=== PATIENT | female | born 1935 | race Caucasian/White ===

== ENCOUNTER 2023-05-11 20:37 | Inpatient (IN) | payer MEDICARE ==
[~2023-05-11] VITALS: Ht 157.5 cm; Wt 87.3 kg
[2023-05-11 21:50] LABS: CARBON DIOXIDE 28 mmol/L (21-32); CHLORIDE 102 mmol/L (98-107); CREATININE 2.6 mg/dL (0.6-1.3); GLUCOSE 169 mg/dL (74-106); SODIUM SERUM 137 mmol/L (136-145); UREA NITROGEN, BLOOD 42 mg/dL (7-18)
[2023-05-11 22:04] LABS: ALANINE AMINOTRANSFERASE 22 U/L (12-78); ALBUMIN 2.7 g/dL (3.4-5.0); ALKALINE PHOSPHATASE 46 U/L (46-116); ASPARTATE AMINOTRANSFERASE 26 U/L (15-37); BILIRUBIN,DIRECT 0.1 mg/dL (0.0-0.2); BILIRUBIN,TOTAL 0.4 mg/dL (0.2-1.0); NT-PRO BNP 719 pg/mL (0-125); TOTAL PROTEIN, SERUM 6.9 g/dL (6.4-8.2)
[2023-05-11 22:30] LABS: BASOPHILS % (AUTO) 0.1 % (0.0-2.0); EOSINOPHILS # (AUTO) 0.1 K/uL (0.0-0.7); EOSINOPHILS % (AUTO) 0.6 % (0.0-6.0); HEMATOCRIT 36 % (33-45); HEMOGLOBIN 11.7 g/dL (11.5-14.8); LYMPHOCYTES # (AUTO) 1.3 K/uL (0.8-4.8); LYMPHOCYTES % (AUTO) 5.7 % (20.0-44.0); MEAN CORPUSCULAR HEMOGLOBIN 28 PG (26.0-33.0); MEAN CORPUSCULAR HGB CONC 32 g/dl (31.0-36.0); MEAN CORPUSCULAR VOLUME 87 fL (82-100); MONOCYTES # (AUTO) 2.2 K/uL (0.1-1.30); MONOCYTES % (AUTO) 9.2 % (2.0-12.0); NEUTROPHILS # (AUTO) 20.1 K/uL (1.8-8.9); NEUTROPHILS % (AUTO) 84.4 % (43.0-81.0); PLATELET COUNT (AUTO) 343 K/uL (150-450); RED BLOOD CELL COUNT(AUTO) 4.17 MIL/uL (4.0-5.2); RED CELL DISTRIBUTION WIDTH 15.5 % (11.5-15.0); WHITE BLOOD COUNT (AUTO) 23.8 K/uL (4.3-11.0)
[2023-05-11] MEDS ORDERED: ENOXAPARIN SODIUM 40 MG/0.4 ML DISP.SYRIN SQ SCH (23:00)
[2023-05-11] MEDS ORDERED: ACETAMINOPHEN 325 MG TABLET PO PRN (23:00)
[2023-05-12] MEDS: LEVOFLOXACIN 750 MG /D5W 150ML 150 ML IV ONE (00:01)
[2023-05-12 00:34] LABS: ADD URINE CULTURE NO; APPEARANCE,URINE CLEAR (CLEAR); BACTERIA,URINE Rare /HPF (None Seen); BILIRUBIN,URINE 1+ (NEGATIVE); BLOOD, URINE NEGATIVE Ery/uL (NEGATIVE); COLOR,URINE YELLOW (YELLOW); KETONES,URINE 1+ mg/dL (NEGATIVE); LEUKOCYTE ESTERASE ,URINE NEGATIVE (NEGATIVE); NITRITE, URINE NEGATIVE (NEGATIVE); PROTEIN,URINE TRACE mg/dl (NEGATIVE); SQUAMOUS EPITHELIAL CELL,UR Rare /HPF (None Seen); UGLUCOSE NEGATIVE (NEGATIVE); UROBILINOGEN,URINE 0.2 EU/dL (0.2); WBC,URINE 0-2 /HPF (0-3)
[2023-05-12] MEDS: IV NS 0.9% 1,000 ML IV PRN (02:04)
[2023-05-12 02:27] VITALS: BP 103/53; TEMP 98.8; O2SAT 96
[2023-05-12 04:00] VITALS: BP 102/50; TEMP 98; O2SAT 96
[2023-05-12] MEDS: FUROSEMIDE 40 MG/4 ML VIAL IV ONE (06:14)
[2023-05-12 07:13] LABS: BASOPHILS % (AUTO) 0.2 % (0.0-2.0); EOSINOPHILS # (AUTO) 0.4 K/uL (0.0-0.7); HEMATOCRIT 33 % (33-45); HEMOGLOBIN 10.6 g/dL (11.5-14.8); LYMPHOCYTES % (AUTO) 16.8 % (20.0-44.0); MEAN CORPUSCULAR HEMOGLOBIN 28 PG (26.0-33.0); MEAN CORPUSCULAR HGB CONC 32 g/dl (31.0-36.0); MEAN CORPUSCULAR VOLUME 88 fL (82-100); MONOCYTES # (AUTO) 1.7 K/uL (0.1-1.30); MONOCYTES % (AUTO) 9.5 % (2.0-12.0); NEUTROPHILS # (AUTO) 12.9 K/uL (1.8-8.9); NEUTROPHILS % (AUTO) 71.5 % (43.0-81.0); PLATELET COUNT (AUTO) 272 K/uL (150-450); RED BLOOD CELL COUNT(AUTO) 3.76 MIL/uL (4.0-5.2); RED CELL DISTRIBUTION WIDTH 15.5 % (11.5-15.0)
[2023-05-12 07:44] LABS: CHOLESTEROL 150 mg/dL (<200); HDL CHOLESTEROL 63 mg/dL (40-60); LDL 66 mg/dL (0-99); TRIGLYCERIDES 92 mg/dL (30-150)
[2023-05-12] MEDS ORDERED: GABA300C PO (07:49)
[2023-05-12] MEDS ORDERED: LISI1TAB55 PO (07:49)
[2023-05-12] MEDS ORDERED: MONT10TA22 PO (07:49)
[2023-05-12] MEDS ORDERED: FLUT1BLS6 IH (07:49)
[2023-05-12] MEDS ORDERED: FENO145T21 PO (07:49)
[2023-05-12 07:57] LABS: CALCIUM, SERUM 8.6 mg/dL (8.5-10.1); CARBON DIOXIDE 25 mmol/L (21-32); CHLORIDE 105 mmol/L (98-107); CREATININE 2.5 mg/dL (0.6-1.3); GLUCOSE 103 mg/dL (74-106); PHOSPHORUS 4.1 mg/dL (2.5-4.9); POTASSIUM 4.2 mmol/L (3.5-5.1); SODIUM SERUM 137 mmol/L (136-145); UREA NITROGEN, BLOOD 44 mg/dL (7-18)
[2023-05-12 08:00] VITALS: BP 90/47; TEMP 97.3
[2023-05-12 10:47] LABS: THYROID STIMULATING HORMONE 0.954 uIU/mL (0.358-3.74)
[2023-05-12] MEDS: ENOXAPARIN SODIUM 30 MG/0.3 ML DISP.SYRIN SQ SCH (10:53)
[2023-05-12 11:28] LABS: APPEARANCE,URINE CLEAR (CLEAR); BILIRUBIN,URINE NEGATIVE (NEGATIVE); BLOOD, URINE NEGATIVE Ery/uL (NEGATIVE); COLOR,URINE YELLOW (YELLOW); KETONES,URINE NEGATIVE (NEGATIVE); LEUKOCYTE ESTERASE ,URINE 2+ (NEGATIVE); NITRITE, URINE POSITIVE (NEGATIVE); PH,URINE 5.5 (5.0-8.0); PROTEIN,URINE NEGATIVE (NEGATIVE); UGLUCOSE NEGATIVE (NEGATIVE); UROBILINOGEN,URINE 0.2 EU/dL (0.2)
[2023-05-12 11:32] LABS: ADD URINE CULTURE YES; BACTERIA,URINE Few /HPF (None Seen); RBC,URINE 0-2 /HPF (0-2); SQUAMOUS EPITHELIAL CELL,UR Rare /HPF (None Seen)
[2023-05-12 11:43] LABS: CREATININE, URINE 47.6 MG/DL (30.0-125.0); URINE TOTAL PROTEIN 7.9 mg/dL (0-11.9)
[2023-05-12 11:47] LABS: EOSINOPHIL,URINE None Seen
[2023-05-12 12:00] VITALS: BP 120/58; TEMP 97.3
[2023-05-12 16:00] VITALS: BP 116/50; TEMP 98; O2SAT 94
[2023-05-12 20:00] VITALS: BP 134/57; TEMP 98.9; O2SAT 95
[2023-05-12] MEDS: AMOXICILLIN TRIHYDRATE 250 MG CAPSULE PO SCH (22:24)
[2023-05-13] VITALS: BP 135/54; TEMP 98.9; O2SAT 95
[2023-05-13 04:00] VITALS: BP 130/63; TEMP 98.9; O2SAT 95
[2023-05-13 06:40] LABS: BASOPHILS % (AUTO) 0.1 % (0.0-2.0); EOSINOPHILS # (AUTO) 0.2 K/uL (0.0-0.7); EOSINOPHILS % (AUTO) 1.3 % (0.0-6.0); HEMATOCRIT 34 % (33-45); HEMOGLOBIN 10.9 g/dL (11.5-14.8); LYMPHOCYTES # (AUTO) 1.8 K/uL (0.8-4.8); LYMPHOCYTES % (AUTO) 11.7 % (20.0-44.0); MEAN CORPUSCULAR HEMOGLOBIN 28 PG (26.0-33.0); MEAN CORPUSCULAR HGB CONC 32 g/dl (31.0-36.0); MEAN CORPUSCULAR VOLUME 88 fL (82-100); MONOCYTES # (AUTO) 1.7 K/uL (0.1-1.30); MONOCYTES % (AUTO) 10.6 % (2.0-12.0); NEUTROPHILS % (AUTO) 76.3 % (43.0-81.0); PLATELET COUNT (AUTO) 302 K/uL (150-450); RED BLOOD CELL COUNT(AUTO) 3.87 MIL/uL (4.0-5.2); RED CELL DISTRIBUTION WIDTH 15.5 % (11.5-15.0); WHITE BLOOD COUNT (AUTO) 15.7 K/uL (4.3-11.0)
[2023-05-13 07:03] LABS: CREATINE KINASE, TOTAL 632 U/L (26-192)
[2023-05-13 07:17] LABS: ALANINE AMINOTRANSFERASE 20 U/L (12-78); ALBUMIN 2.1 g/dL (3.4-5.0); ALKALINE PHOSPHATASE 40 U/L (46-116); ASPARTATE AMINOTRANSFERASE 33 U/L (15-37); BILIRUBIN,TOTAL 0.4 mg/dL (0.2-1.0); CALCIUM, SERUM 8.7 mg/dL (8.5-10.1); CARBON DIOXIDE 26 mmol/L (21-32); CHLORIDE 105 mmol/L (98-107); CREATININE 1.7 mg/dL (0.6-1.3); GLUCOSE 142 mg/dL (74-106); MAGNESIUM 1.9 mg/dL (1.8-2.4); PHOSPHORUS 3.3 mg/dL (2.5-4.9); POTASSIUM 3.9 mmol/L (3.5-5.1); SODIUM SERUM 138 mmol/L (136-145); TOTAL PROTEIN, SERUM 6.1 g/dL (6.4-8.2); UREA NITROGEN, BLOOD 41 mg/dL (7-18)
[2023-05-13 08:00] VITALS: BP 140/65; TEMP 98; O2SAT 94
[2023-05-13] MEDS: ASPIRIN 81 MG TAB.CHEW PO SCH (09:25)
[2023-05-13 12:00] VITALS: BP 118/63; TEMP 97.8
[2023-05-13 14:07] LABS: *SPE ALBUMIN 3.2 g/dL (2.9-4.4); *SPE ALPHA-1-GLOBULIN 0.4 g/dL (0.0-0.4); *SPE ALPHA-2-GLOBULIN 0.9 g/dL (0.4-1.0); *SPE BETA GLOBULIN 1.2 g/dL (0.7-1.3); *SPE GLOBULIN, TOTAL 3.2 g/dL (2.2-3.9); *SPE M-SPIKE Not Observed g/dL (Not Observed); *SPE PROTEIN TOTAL 6.4 g/dL (6.0-8.5); *SPEGAMMA GLOBULIN 0.8 g/dL (0.4-1.8)
[2023-05-13] MEDS: SOD FERRIC GLUC 125 MG in IV NS 0.9% 100 ML IV SCH (14:07)
[2023-05-13 16:00] VITALS: BP 106/91; TEMP 98.2; O2SAT 96
[2023-05-13 20:00] VITALS: BP 141/63; TEMP 99.5; O2SAT 98
[2023-05-14] VITALS: BP 137/71; TEMP 99; O2SAT 94
[2023-05-14 04:00] VITALS: BP 137/46; TEMP 97.9; O2SAT 92
[2023-05-14 06:53] LABS: BASOPHILS % (AUTO) 0.1 % (0.0-2.0); EOSINOPHILS # (AUTO) 0.1 K/uL (0.0-0.7); HEMATOCRIT 34 % (33-45); HEMOGLOBIN 10.9 g/dL (11.5-14.8); LYMPHOCYTES # (AUTO) 1.6 K/uL (0.8-4.8); LYMPHOCYTES % (AUTO) 12.2 % (20.0-44.0); MEAN CORPUSCULAR HEMOGLOBIN 28 PG (26.0-33.0); MEAN CORPUSCULAR HGB CONC 32 g/dl (31.0-36.0); MEAN CORPUSCULAR VOLUME 88 fL (82-100); MONOCYTES # (AUTO) 1.8 K/uL (0.1-1.30); MONOCYTES % (AUTO) 13.8 % (2.0-12.0); NEUTROPHILS # (AUTO) 9.3 K/uL (1.8-8.9); NEUTROPHILS % (AUTO) 72.9 % (43.0-81.0); PLATELET COUNT (AUTO) 310 K/uL (150-450); RED BLOOD CELL COUNT(AUTO) 3.85 MIL/uL (4.0-5.2); RED CELL DISTRIBUTION WIDTH 15.1 % (11.5-15.0); WHITE BLOOD COUNT (AUTO) 12.8 K/uL (4.3-11.0)
[2023-05-14 07:17] LABS: ALANINE AMINOTRANSFERASE 20 U/L (12-78); ALBUMIN 1.9 g/dL (3.4-5.0); ALKALINE PHOSPHATASE 39 U/L (46-116); ASPARTATE AMINOTRANSFERASE 27 U/L (15-37); BILIRUBIN,TOTAL 0.5 mg/dL (0.2-1.0); CALCIUM, SERUM 8.8 mg/dL (8.5-10.1); CARBON DIOXIDE 26 mmol/L (21-32); CHLORIDE 105 mmol/L (98-107); CREATININE 1.4 mg/dL (0.6-1.3); GLUCOSE 132 mg/dL (74-106); MAGNESIUM 1.8 mg/dL (1.8-2.4); PHOSPHORUS 2.7 mg/dL (2.5-4.9); POTASSIUM 3.6 mmol/L (3.5-5.1); SODIUM SERUM 141 mmol/L (136-145); TOTAL PROTEIN, SERUM 6.1 g/dL (6.4-8.2); UREA NITROGEN, BLOOD 29 mg/dL (7-18)
[2023-05-14 08:00] VITALS: BP 107/53; TEMP 98.1; O2SAT 100
[2023-05-14 08:11] LABS: PTH, INTACT 36 pg/mL (15-65)
[2023-05-14 12:00] VITALS: BP 107/53; TEMP 98.1; O2SAT 100
[2023-05-14 16:00] VITALS: BP 140/71; TEMP 97.9; O2SAT 95
[2023-05-14] MEDS: LIDOCAINE 1% INJ 50 ML MDV IJ ONE (16:11)
[2023-05-14] MEDS: TRIAMCINOLONE ACETONIDE SUSP 40 MG/ML VIAL IM ONE (16:11)
[2023-05-14] MEDS: BUPIVACAINE 0.25% 75 MG/30 ML VIAL IJ ONE (16:11)
[2023-05-14] MEDS: GABAPENTIN 300 MG CAPSULE PO SCH (16:20)
[2023-05-14 20:00] VITALS: BP 161/69; TEMP 98; O2SAT 99
[2023-05-14] MEDS: MONTELUKAST SODIUM (10MG) 10 MG TABLET PO SCH (21:20)
[2023-05-15 04:00] VITALS: BP 120/56; TEMP 97.9; O2SAT 100
[2023-05-15 08:00] VITALS: BP 122/69; TEMP 98.4; O2SAT 95
[2023-05-15 10:41] LABS: BASOPHILS % (AUTO) 0.2 % (0.0-2.0); EOSINOPHILS % (AUTO) 0.1 % (0.0-6.0); HEMATOCRIT 34 % (33-45); HEMOGLOBIN 10.8 g/dL (11.5-14.8); LYMPHOCYTES # (AUTO) 1.5 K/uL (0.8-4.8); LYMPHOCYTES % (AUTO) 11.9 % (20.0-44.0); MEAN CORPUSCULAR HEMOGLOBIN 28 PG (26.0-33.0); MEAN CORPUSCULAR HGB CONC 32 g/dl (31.0-36.0); MEAN CORPUSCULAR VOLUME 87 fL (82-100); MONOCYTES # (AUTO) 1.1 K/uL (0.1-1.30); MONOCYTES % (AUTO) 8.6 % (2.0-12.0); NEUTROPHILS # (AUTO) 10.1 K/uL (1.8-8.9); NEUTROPHILS % (AUTO) 79.2 % (43.0-81.0); PLATELET COUNT (AUTO) 353 K/uL (150-450); RED BLOOD CELL COUNT(AUTO) 3.85 MIL/uL (4.0-5.2); RED CELL DISTRIBUTION WIDTH 14.9 % (11.5-15.0); WHITE BLOOD COUNT (AUTO) 12.7 K/uL (4.3-11.0)
[2023-05-15 10:58] LABS: CALCIUM, SERUM 8.8 mg/dL (8.5-10.1); CREATININE 1.3 mg/dL (0.6-1.3); POTASSIUM 4.2 mmol/L (3.5-5.1)
[2023-05-15 11:05] LABS: ALBUMIN 1.9 g/dL (3.4-5.0); BILIRUBIN,TOTAL 0.4 mg/dL (0.2-1.0); MAGNESIUM 1.8 mg/dL (1.8-2.4); PHOSPHORUS 3.4 mg/dL (2.5-4.9); TOTAL PROTEIN, SERUM 6.6 g/dL (6.4-8.2)
[2023-05-15 12:00] VITALS: O2SAT 95
[2023-05-15 16:00] VITALS: BP 137/59; TEMP 98.1; O2SAT 95
[2023-05-15] MEDS: ONDANSETRON HCL/PF 4 MG/2 ML VIAL IVP PRN (17:09)
[2023-05-15 20:00] VITALS: BP 117/52; TEMP 98.3; O2SAT 92
[2023-05-16] VITALS: BP 117/52; TEMP 98.3; O2SAT 92
[2023-05-16 04:00] VITALS: BP_SYST 117; BP_SYST 120; BP_DIAS 52; BP_DIAS 65; TEMP 97.7; TEMP 98.3; O2SAT 92; O2SAT 96
[2023-05-16 07:06] LABS: CALCIUM, SERUM 9.1 mg/dL (8.5-10.1); CARBON DIOXIDE 21 mmol/L (21-32); CHLORIDE 105 mmol/L (98-107); CREATININE 1.4 mg/dL (0.6-1.3); GLUCOSE 100 mg/dL (74-106); MAGNESIUM 2.2 mg/dL (1.8-2.4); PHOSPHORUS 4.1 mg/dL (2.5-4.9); POTASSIUM 4.8 mmol/L (3.5-5.1); SODIUM SERUM 138 mmol/L (136-145); UREA NITROGEN, BLOOD 38 mg/dL (7-18)
[2023-05-16] MEDS ORDERED: IV NS 0.9% 1,000 ML IV PRN (08:29)
[2023-05-16 09:07] LABS: *SPE A/G RATIO 0.8 (0.7-1.7); *SPE ALBUMIN 2.3 g/dL (2.9-4.4); *SPE ALPHA-1-GLOBULIN 0.4 g/dL (0.0-0.4); *SPE ALPHA-2-GLOBULIN 0.9 g/dL (0.4-1.0); *SPE M-SPIKE Not Observed g/dL (Not Observed); *SPE PROTEIN TOTAL 5.3 g/dL (6.0-8.5); *SPEGAMMA GLOBULIN 0.6 g/dL (0.4-1.8)
[2023-05-16 09:09] LABS: BASOPHILS % (AUTO) 0.2 % (0.0-2.0); EOSINOPHILS # (AUTO) 1.9 K/uL (0.0-0.7); EOSINOPHILS % (AUTO) 7.3 % (0.0-6.0); HEMATOCRIT 37 % (33-45); LYMPHOCYTES # (AUTO) 2.7 K/uL (0.8-4.8); LYMPHOCYTES % (AUTO) 10.6 % (20.0-44.0); MEAN CORPUSCULAR HEMOGLOBIN 29 PG (26.0-33.0); MEAN CORPUSCULAR HGB CONC 33 g/dl (31.0-36.0); MEAN CORPUSCULAR VOLUME 88 fL (82-100); MONOCYTES # (AUTO) 2.1 K/uL (0.1-1.30); MONOCYTES % (AUTO) 8.2 % (2.0-12.0); NEUTROPHILS # (AUTO) 18.8 K/uL (1.8-8.9); NEUTROPHILS % (AUTO) 73.7 % (43.0-81.0); PLATELET COUNT (AUTO) 531 K/uL (150-450); RED BLOOD CELL COUNT(AUTO) 4.18 MIL/uL (4.0-5.2); RED CELL DISTRIBUTION WIDTH 16.3 % (11.5-15.0); WHITE BLOOD COUNT (AUTO) 25.5 K/uL (4.3-11.0)
[2023-05-16] MEDS ORDERED: LISI20TA30 PO (09:43)
[2023-05-16] MEDS ORDERED: AMOX500T2 PO (09:43)
== END 2023-05-16 12:33 | disposition home health service (06) | DRG 871 ==
LOC: ER 20:50 → TELE1 05-12 00:22 → MEDSG1 05-14 08:43
PROVIDERS: ADMIT Nurse Practitioner Acute Care; ATTEND Nurse Practitioner Acute Care
PROC: 05HB33Z Insertion of Infusion Device into Right Basilic Vein, Percutaneous Approach (ICD-10-PCS; 2023-05-13)
PROC: 0S9C3ZX Drainage of Right Knee Joint, Percutaneous Approach, Diagnostic (ICD-10-PCS; principal; 2023-05-14)
DX: A41.9 Sepsis, unspecified organism (principal); I21.A1 Myocardial infarction type 2; N17.0 Acute kidney failure with tubular necrosis; E44.0 Moderate protein-calorie malnutrition; N39.0 Urinary tract infection, site not specified; M00.9 Pyogenic arthritis, unspecified; D68.59 Other primary thrombophilia; B96.89 Other specified bacterial agents as the cause of diseases classified elsewhere; M25.461 Effusion, right knee; R26.2 Difficulty in walking, not elsewhere classified; M17.11 Unilateral primary osteoarthritis, right knee; J44.9 Chronic obstructive pulmonary disease, unspecified; E66.01 Morbid (severe) obesity due to excess calories; I10 Essential (primary) hypertension; Z68.35 Body mass index [BMI] 35.0-35.9, adult; E88.09 Other disorders of plasma-protein metabolism, not elsewhere classified; G89.29 Other chronic pain; Z79.899 Other long term (current) drug therapy; R00.1 Bradycardia, unspecified; R60.0 Localized edema; D50.9 Iron deficiency anemia, unspecified; D72.829 Elevated white blood cell count, unspecified; T38.0X5A Adverse effect of glucocorticoids and synthetic analogues, initial encounter; Y92.230 Patient room in hospital as the place of occurrence of the external cause; I27.20 Pulmonary hypertension, unspecified; M54.30 Sciatica, unspecified side
CPT/HCPCS: 36410; 36415; 71045-TC; 73700-TC; 76770-TC; 80048-TC; 80053-TC; 80061-TC; 80076-TC; 81001; 82550-TC; 82553; 82570-TC; 82728-TC; 83540-TC; 83735-TC; 83880; 83970; 84100-TC; 84155; 84165; 84300-TC; 84439-TC; 84443-TC; 84484-TC; 85025-TC; 87040-TC; 87086-TC; 93307-TC; 93970-TC; 97110-TC; 97116-TC; 97530-TC; A4223; A6253; G0378; J1650; J1940; J1956; J2405; J2916; J3301; J3490; J7030